=== PATIENT | female | born 1955 | race Caucasian/White ===

== ENCOUNTER → 2019-08-23 09:11 | Outpatient (BNVA) | payer MEDICARE, SELFPAY | PROVIDERS: Family Provider Internal Medicine; PCP Internal Medicine; Visit Provider Family Medicine | DX: Z13.6 Encounter for screening for cardiovascular disorders (principal); F17.219 Nicotine dependence, cigarettes, with unspecified nicotine-induced disorders; L98.9 Disorder of the skin and subcutaneous tissue, unspecified | CPT/HCPCS: 80053; 80061; 85025 ==

== ENCOUNTER 2019-08-28 18:10 | Emergency (ER) | payer MEDICARE, SELFPAY ==
[2019-08-28 18:15] VITALS: BP 211/115; PULSE 87; RESP 20; TEMP 36.6; O2SAT 98; BMI 23.0
--- NOTE | 2019-08-28 18:27 | CTR_ITS ---
PROCEDURE INFORMATION: Exam: CT Head Without Contrast Exam date and time: 08/28/2019 6:29 PM Age: 63 years old Clinical indication: Dizziness and other: Blurry vision, elevated BP; Additional info: Headache, blurry vision TECHNIQUE: Imaging protocol: Computed tomography of the head without contrast. Total DLP: 782.43 mGy-cm Radiation optimization: All CT scans at this facility use at least one of these dose optimization techniques: automated exposure control; mA and/or kV adjustment per patient size (includes targeted exams where dose is matched to clinical indication); or iterative reconstruction. COMPARISON: No relevant prior studies available. FINDINGS: Brain: Mild atrophy and mild white matter chronic microvascular changes are noted. No hemorrhage or CT evidence of acute infarction is seen. Ventricles: Normal. No ventriculomegaly. Bones/joints: Unremarkable. No acute fracture. Sinuses: Visualized sinuses are unremarkable. No fluid levels. Mastoid air cells: Visualized mastoid air cells are well aerated. Orbits: The visualized intraorbital contents appear normal. Soft tissues: Unremarkable. CT/CT head wo con* [id number] IMPRESSION: No acute intracranial abnormality. Radiation Dose CTDIVOL = (mGy): DLP = 782.43 (mGy-cm)
--- NOTE | 2019-08-28 18:28 | ECG_ITS ---
Measurements Intervals Hailey Rate: 74 P: 56 AK: 148 QRS: 33 QRSD: 84 T: 37 QT: 362 QTc: 402 SINUS RHYTHM No previous ECG available for comparison Electronically Signed On 08-29-2019 15:42:40 BAG CUTTER by Christiano Lange M.D. [email or web address]
--- NOTE | 2019-08-28 18:34 | ED_ITS ---
HPI - General Adult General: Chief complaint: General Medical Stated complaint: HTN, CARDENAS, Blurry Vision Time Seen by Provider: 08/28/19 18:27 History of Present Illness: HPI narrative: Patient was brought in by family for concerns of elevated blood pressure, headache and some blurring of the vision. Patient reports some improvement but the headaches has persisted all day. Patient appears well. No obvious focal neural deficits were noted. Skin is warm and dry. Associated symptoms: Reports headache(s) Review of Systems General: Reports: 10 or more systems reviewed and unremarkable except in HPI and below Eyes: Reports: blurry vision Neuro: Reports: headache PFSH ED PFSH: Statuses (acute, chronic, etc) shown below reflect problem list status as previously entered and may not be historically accurate Medical History (Updated 08/28/19 @ 19:36 by CECILIO Flynn) No pertinent past medical history (Acute) Surgical History (Updated 08/23/19 @ 08:53 by Sindy Garcia DO) H/O: hysterectomy (Acute) History of left hip replacement (Acute ~2013) History of tonsillectomy and adenoidectomy (Acute) Social History Smoking and tobacco status: current every day smoker cigarettes Packs smoked per day: 0.25 Alcohol intake: current Alcohol intake frequency: holidays/special occasions only Physical Exam Const: COMMON NORMALS: no apparent distress and oriented x3 GENERAL APPEARANCE: cooperative HENMT: COMMON NORMALS: normocephalic, external ears normal, EAC's normal, TM's normal bilaterally and external nose normal HEAD & SCALP: normal to inspection and normocephalic FACE & SINUS: normal facial exam NOSE: external nose normal GENERAL EAR: hearing not grossly impaired EXTERNAL EA R: Yes external ears normal EXTERNAL AUDITORY CANAL: EAC's normal TYMPANIC MEMBRANE: TM's normal bilaterally MOUTH: oral and palatal mucosa normal THROAT: posterior oropharynx normal Eye: COMMON NORMALS: PERRL, EOMs intact bilaterally and fundi normal bilaterally PUPIL: Yes PERRL DIRECT OPHTHALMOSCOPY: Yes fundi normal bilaterally Neck/C-Spine: COMMON NORMALS: full ROM and no lymphadenopathy Lymph: LYMPHATIC: no lymphedema noted Chest: COMMONS NORMALS: inspection of chest normal and palpation of chest normal Resp: COMMON NORMALS: normal respiratory effort and clear to auscultation bilaterally AUSCULTATION: clear to auscultation bilaterally Cardio: COMMON NORMALS: regular rate and regular rhythm RATE: regular rate RHYTHM: regular rhythm GI: COMMON NORMALS: normal to inspection, nondistended, normoactive bowel sounds and non-tender : COMMON NORMALS: Yes no CVA tenderness BLADDER/KIDNEY EXAM: Yes no CVA tenderness Back/Pelvis: COMMON NORMALS: no CVA tenderness and thoracic and lumbar spine normal to inspection Extremity: COMMON NORMALS: normal to inspection GENERAL: No edema Neuro: COMMON NORMALS: oriented x3, moves all extremities and no focal motor deficits Psych: COMMON NORMALS: mental status grossly normal and cooperative Skin: COMMON NORMALS: no rashes or lesions noted GENERAL SKIN EXAM: no rashes or lesions noted Course Vital Signs: Vital signs: Vital Signs Temperature 97.9 F 08/28/19 18:15 Pulse Rate 71 08/28/19 19:35 Respiratory Rate 20 H 08/28/19 18:15 Blood Pressure 158/88 08/28/19 19:35 Pulse Oximetry 98 08/28/19 18:15 MDM - General Adult MDM Narrative: Medical decision making narrative: Patient was brought in by family for concerns of high blood pressure. Patient states that she had had a headache starting this afternoon when she noticed her blood pressure was really high. Patient was recently to the doctor earlier in the week and was told that she had some mild hypertension. Patient comes in today due to these increase in blood pressure and headache. Exam notes no focal neural deficits. Respirations are even lungs are clear to auscultation. Skin is warm and dry color is pink. Differential diagnosis includes ACS, intracranial bleeding, CVA, TIA, hypertensive emergency. Laboratory values were normal or not significant. EKG was normal sinus rhythm. CT scan of the head noted no intracranial bleeding or acute infarct. Reviewed exam with patient with recommendations for clonidine as needed for elevated blood pressure greater than 165. Recommend that patient follow-up with primary care on Friday at that time she needs to be put on medication routinely for maintenance. Lab Data: Labs: Lab Results 08/28/19 08/28/19 08/28/19 Range/Units 18:36 18:36 18:36 WBC 7.4 (4.0-10.0) 10^3/ uL RBC 4.63 (4.1-5.3) 10^6/u L Hgb 14.4 (11.5-15.3) g/dL Hct 43.2 (37.0-47.0) % MCV 93.3 (81-99) fL MCH 31.1 (28.0-34.0) pg MCHC 33.3 (30.0-36.0) g/dL RDW 13.0 (12.1-15.1) % Plt Count 258 (130-400) 10^3/c mm MPV 10.2 (7.4-10.4) fL Neut % (Auto) 61.5 % Lymph % (Auto) 30.4 % [place] % (Auto) 5.5 % Eos % (Auto) 1.8 % Baso % (Auto) 0.5 % Neut # (Auto) 4.6 (1.8-7.7) 10^3/u L Lymph # (Auto) 2.3 (0.8-4.8) 10^3/u L [place] # (Auto) 0.4 (0.2-0.9) 10^3/u L Eos # (Auto) 0.1 (0.0-0.8) 10^3/u L Baso # (Auto) 0.0 (0.0-0.1) 10^3/u L Nucleated RBC % (a uto) 0 % Nucleated RBCs # 0.0 /100WBC Sodium 140 (136-145) mmol/L Potassium 3.5 (3.5-5.1) mmol/L Chloride 103 (98-107) mmol/L Carbon Dioxide 25 (22-29) mmol/L Anion Gap 15.5 (5-19) BUN 10 (8-23) mg/dL Creatinine 0.6 (0.5-0.9) mg/dL GFR Calculation 100.6 (90-130) mL/min Glucose 109 H (74-106) mg/dL Calcium 9.5 (8.5-10.5) mg/dL Total Bilirubin 0.2 (0.15-1.2) mg/dL AST 16 (0-32) U/L ALT 10 (0-33) U/L Alkaline Phosphata se 106 H (35-105) IU/L Troponin T Baselin e 7 (0-10) ng/mL Total Protein 7.2 (6.6-8.7) g/dL Albumin 4.5 (3.5-5.2) g/dL Globulin 2.7 (1.3-4.6) g/dL EKG Data^: EKG 1: Attestation: I personally reviewed and interpreted this EKG as follows: (1839, NSR, rate regular, 74 bpm, no ectopy or ST elevation.) Computer generated interpretation: Head CT 08/28/19 18:27 IMPRESSION: No acute intracranial abnormality. Radiation Dose CTDIVOL = (mGy): DLP = 782.43 (mGy-cm) Discharge Plan Discharge Clinical Impression: Hypertension, uncontrolled Headache Qualifiers: Headache type: unspecified Headache chronicity pattern: acute headache Intractability: not intractable Qualified Code(s): R51 - Headache Condition: Stable Prescriptions: New clonidine HCl 0.1 mg tablet 0.1 mg PO Q8H PRN (Reason: blood pressure higher than 165 systolic) Qty: 30 RF: 0 No Action albuterol sulfate [ProAir HFA] 90 mcg/actuation HFA aerosol inhaler 2 puff INHALATION Q6H PRNRF: 0 atorvastatin 20 mg tablet 20 mg PO QDAY Qty: 45 RF: 0 Discharge Orders: Discharge Order (Routine); Ordered 08/28/19 Ordered By: Hernan Casillas Referrals: Sindy Garcia DO [Primary Care Provider] - Tyler Ray DO [Family Provider] - Discharge Diet: Usual diet Discharge Activity: Increase activity as tolerated Patient Instructions: Hypertension (ED) Activity Restrictions/Additional Instructions: Try to continue to stop smoking Drink plenty of water Healthy diet and exercise Use medications as directed Check blood pressure three times a day, if pressure is higher than 165 on the top number use clonidine 0.1 mg Follow-up with primary care on Friday for recheck Coding Level of Care Code ED Parachute/Combatant Diver Officer for Chg Fwd Exam Problem Focused
[2019-08-28] MEDS: cloNIDine 0.1 mg Tablet PO (18:38)
[2019-08-28 18:52] LABS: Basophils % 0.5 %; Eosinophils # 0.1 10^3/uL (0.0-0.8); Eosinophils % 1.8 %; Hematocrit 43.2 % (37.0-47.0); Hemoglobin 14.4 g/dL (11.5-15.3); Lymphocytes # 2.3 10^3/uL (0.8-4.8); Lymphocytes % 30.4 %; Mean Corpuscular HGB Conc 33.3 g/dL (30.0-36.0); Mean Corpuscular Hemoglobin 31.1 pg (28.0-34.0); Mean Corpuscular Volume 93.3 fL (81-99); Mean Platelet Volume 10.2 fL (7.4-10.4); Monocytes # 0.4 10^3/uL (0.2-0.9); Monocytes % 5.5 %; Neutrophils # 4.6 10^3/uL (1.8-7.7); Neutrophils % 61.5 %; Nucleated Red Blood Cells % 0 %; Platelet Count 258 10^3/cmm (130-400); Red Blood Count 4.63 10^6/uL (4.1-5.3); White Blood Count 7.4 10^3/uL (4.0-10.0)
[2019-08-28] MEDS: HYDROcodone-acetaminophen 5-325 mg Tablet 1 TAB PO (18:57)
[2019-08-28 19:08] LABS: Alanine Aminotransferase 10 U/L (0-33); Albumin Level 4.5 g/dL (3.5-5.2); Alkaline Phosphatase 106 IU/L (35-105); Anion Gap 15.5 (5-19); Aspartate Amino Transferase 16 U/L (0-32); Blood Urea Nitrogen 10 mg/dL (8-23); Calcium 9.5 mg/dL (8.5-10.5); Carbon Dioxide 25 mmol/L (22-29); Chloride 103 mmol/L (98-107); Globulin 2.7 g/dL (1.3-4.6); Glomerular Filtration Rate 100.6 mL/min (90-130); Glucose 109 mg/dL (74-106); Potassium 3.5 mmol/L (3.5-5.1); Sodium 140 mmol/L (136-145); Total Bilirubin 0.2 mg/dL (0.15-1.2); Total Protein 7.2 g/dL (6.6-8.7)
[2019-08-28 19:16] LABS: Troponin(5th) Baseline 7 ng/mL (0-10)
[2019-08-28 19:35] VITALS: BP 158/88; BP 164/93; BP 168/93; PULSE 71; PULSE 75; PULSE 79
[2019-08-28 20:06] VITALS: BP 168/93; PULSE 74; RESP 18; O2SAT 97
== END 2019-08-28 20:07 ==
PROVIDERS: Emergency Provider Nurse Practitioner Family; Family Provider Internal Medicine; PCP Family Medicine
DX: I10 Essential (primary) hypertension (principal); R51 Headache; F17.210 Nicotine dependence, cigarettes, uncomplicated
CPT/HCPCS: 70450; 80053; 84484; 85025; 93005; 99282; 99283

== ENCOUNTER → 2019-09-20 09:09 | Outpatient (BNVA) | payer MEDICARE, SELFPAY | PROVIDERS: Family Provider Internal Medicine; PCP Family Medicine; Visit Provider Family Medicine | DX: E78.2 Mixed hyperlipidemia (principal); Z12.31 Encounter for screening mammogram for malignant neoplasm of breast; I10 Essential (primary) hypertension; Z78.0 Asymptomatic menopausal state; Z01.419 Encounter for gynecological examination (general) (routine) without abnormal findings | CPT/HCPCS: 80053 ==

== ENCOUNTER 2019-11-15 09:06 | Outpatient (CLI) | payer MEDICARE, SELFPAY ==
--- NOTE | 2019-11-15 09:30 | XR_ITS ---
WS: [id number] RIGHT ELBOW: 2 VIEW(S) TECHNIQUE: AP and lateral. HISTORY: right elbow pain COMPARISON: None available. No acute fractures or dislocation. There is a small anterior joint effusion. No soft tissue abnormality. XR/XR elbow RT 2V [id number] IMPRESSION: Small anterior joint effusion with no fracture identified. Occult fracture shou ld be considered if pain does not resolve. If pain continues after 5-7 days recommended 3 view RIGHT elbow radiographic se kalia.
--- NOTE | 2019-11-16 08:26 | XR_ITS ---
WS: [id number] RIGHT ELBOW: 3 VIEW(S) TECHNIQUE: AP, oblique and lateral. HISTORY: right elbow pain COMPARISON: 11/15/2019 No acute fractures or dislocation. Very slight elevation of the anterior joint capsule. No significant effusion. No soft tissue abnormality.
== END 2019-11-15 09:07 | disposition home or self-care (01) ==
PROVIDERS: Family Provider Internal Medicine; PCP Family Medicine; Visit Provider Family Medicine
DX: M25.521 Pain in right elbow (principal); M25.421 Effusion, right elbow; E78.2 Mixed hyperlipidemia
CPT/HCPCS: 73070; 80053; 80061

== ENCOUNTER 2019-11-16 08:31 | Outpatient (CLI) | payer MEDICARE, SELFPAY ==
--- NOTE | 2019-11-16 12:11 | XR_ITS ---
WS: [id number] RIGHT ELBOW: 3 VIEW(S) TECHNIQUE: AP, oblique and lateral. HISTORY: right elbow pain COMPARISON: 11/15/2019 No acute fractures or dislocation. Very slight elevation of the anterior joint capsule. No significant effusion. No soft tissue abnormality. XR/XR elbow RT min 3V* [id number] IMPRESSION: No RIGHT elbow fracture identified. Very minimal elevation of the anterior join t capsule.
== END 2019-11-16 08:32 | disposition home or self-care (01) ==
LOC: RADWPI 08:34
PROVIDERS: Family Provider Internal Medicine; PCP Family Medicine; Visit Provider Family Medicine
DX: M25.521 Pain in right elbow (principal)
CPT/HCPCS: 73080

== ENCOUNTER 2019-12-14 11:31 | Outpatient (CLI) | payer MEDICARE, SELFPAY ==
--- NOTE | 2019-12-14 16:15 | XR_ITS ---
WS: [id number] DEXA (DUAL ENERGY X-RAY ABSORPTIOMETRY) Bone mineral density was performed using a [employer] machine. HISTORY: post-menopausal COMPARISON: None available. Lumbar spine BMD (L1-L4): 0.878 g/cm2 T score: -2.5 Z score: -0.7 Left forearm BMD: 0.726 g/cm2. T score: -1.7 Z score: -0.4 Total hip BMD: Right: 0.709. T score: -2.4 Z score: -1.0 10 year probability of a major osteoporotic fracture is 15%. XR/XR DEXA axial skeleton* [id number] IMPRESSION: OSTEOPOROSIS based upon the WHO classification for females.
== END 2019-12-14 11:32 | disposition home or self-care (01) ==
LOC: RADWPI 11:36
PROVIDERS: PCP Family Medicine; Visit Provider Family Medicine
DX: Z78.0 Asymptomatic menopausal state (principal); M81.0 Age-related osteoporosis without current pathological fracture
CPT/HCPCS: 77080

== ENCOUNTER 2019-12-14 12:18 | Outpatient (CLI) | payer MEDICARE, SELFPAY ==
--- NOTE | 2019-12-14 12:30 | MM_ITS ---
WS: [id number] BILATERAL DIGITAL SCREENING MAMMOGRAPHY WITH CAD CLINICAL INFORMATION: screening mammogram HISTORY: Screening mammogram. No current complaints. COMPARISON: June 22, 2018 TECHNIQUE: Bilateral CC and MLO views. FINDINGS: Scattered fibroglandular densities bilaterally. No suspicious focal mass, asymmetry, calcifications, or architectural distortion. No evidence of malignancy. Vascular calcification. Intramammary lymph no earline. MM/[place] [id number] IMPRESSION: BI-RADS: 2-Benign FOLLOW UP: 1 Year Follow-up Recommend return to annual screening mammography.
== END 2019-12-14 12:19 | disposition home or self-care (01) ==
LOC: RADSHAW 12:22
PROVIDERS: PCP Family Medicine; Visit Provider Family Medicine
DX: Z12.31 Encounter for screening mammogram for malignant neoplasm of breast (principal)
CPT/HCPCS: 77067

== ENCOUNTER → 2020-05-11 09:51 | Outpatient (BNVA) | payer MEDICARE, SELFPAY | PROVIDERS: PCP Family Medicine; Visit Provider Family Medicine | DX: I10 Essential (primary) hypertension (principal); E78.2 Mixed hyperlipidemia; R60.0 Localized edema; F17.219 Nicotine dependence, cigarettes, with unspecified nicotine-induced disorders | CPT/HCPCS: 80053; 80061 ==

== ENCOUNTER → 2020-11-09 09:15 | Outpatient (BNVA) | payer MEDICARE, SELFPAY | PROVIDERS: PCP Family Medicine; Visit Provider Family Medicine | DX: I10 Essential (primary) hypertension (principal); E78.2 Mixed hyperlipidemia; L98.9 Disorder of the skin and subcutaneous tissue, unspecified; J30.1 Allergic rhinitis due to pollen; F17.219 Nicotine dependence, cigarettes, with unspecified nicotine-induced disorders | CPT/HCPCS: 80053; 80061; 82043; 85025 ==

== ENCOUNTER 2021-01-22 11:45 | Outpatient (CLI) | payer MEDICARE, SELFPAY ==
--- NOTE | 2021-01-22 11:53 | MM_ITS ---
WS: [id number] BILATERAL DIGITAL SCREENING MAMMOGRAPHY WITH CAD CLINICAL INFORMATION: SCREENING HISTORY: Screening mammogram. No current complaints. COMPARISON: December 14, 2019 TECHNIQUE: Bilateral CC and MLO views. FINDINGS: Scattered fibroglandular densities bilaterally. A few punctate calcifications. No suspicious focal ma ss, asymmetry, calcifications, or architectural distortion. No evidence of malignancy. MM/[place] [id number] IMPRESSION: BI-RADS: 2-Benign FOLLOW UP: 1 Year Follow-up Recommend return to annual screening mammography.
== END 2021-01-22 11:46 | disposition home or self-care (01) ==
LOC: RADSHAW 11:50
PROVIDERS: PCP Family Medicine; Visit Provider Family Medicine
DX: Z12.31 Encounter for screening mammogram for malignant neoplasm of breast (principal)
CPT/HCPCS: 77067

== ENCOUNTER → 2021-05-10 11:56 | Outpatient (BNVA) | payer MEDICARE, SELFPAY | PROVIDERS: PCP Family Medicine; Visit Provider Family Medicine | DX: I10 Essential (primary) hypertension (principal) | CPT/HCPCS: 80053 ==

== ENCOUNTER → 2021-07-02 10:18 | Outpatient (BNVA) | payer MEDICARE, SELFPAY | PROVIDERS: PCP Family Medicine; Visit Provider Nurse Practitioner Family | DX: Z20.822 Contact with and (suspected) exposure to COVID-19 (principal) | CPT/HCPCS: 87635 ==

== ENCOUNTER → 2021-11-23 11:32 | Outpatient (BNVA) | payer MEDICARE, SELFPAY | PROVIDERS: PCP Family Medicine; Visit Provider Family Medicine | DX: I10 Essential (primary) hypertension (principal); J20.8 Acute bronchitis due to other specified organisms; B96.89 Other specified bacterial agents as the cause of diseases classified elsewhere; Z78.0 Asymptomatic menopausal state | CPT/HCPCS: 80053; 80061; 82043; 85025 ==

== ENCOUNTER 2022-03-20 09:20 | Outpatient (CLI) | payer MEDICARE, SELFPAY ==
--- NOTE | 2022-03-20 09:25 | MM_ITS ---
WS: [id number] Bilateral screening 3D tomosynthesis digital mammogram, 03/20/2022 Clinical Data: SCREENING Comparison: 01/22/2021, 12/14/2019, 07/07/2018, 06/22/2018. Findings: The breast parenchymal pattern shows fibroglandular tissue. No spiculated masses or clustered calcifi cations are seen. There are no secondary signs of carcinoma. Mole markers are on both breasts. MM/[place] [id number] Impression: 1. Negative bilateral mammogram unchanged. 2. Recommend annual screening mammograms. BIRADS: 1-Negative FOLLOW UP: 1 Year Follow-up The CAD weight yardage checker was used.
== END 2022-03-20 09:21 | disposition home or self-care (01) ==
LOC: RAD 09:22
PROVIDERS: PCP Family Medicine; Visit Provider Family Medicine
DX: Z12.31 Encounter for screening mammogram for malignant neoplasm of breast (principal)
CPT/HCPCS: 77063; 77067

== ENCOUNTER 2022-09-09 10:47 | Outpatient (CLI) | payer MEDICARE, SELFPAY ==
--- NOTE | 2022-09-09 11:02 | XRR_ITS ---
PROCEDURE INFORMATION: Exam: XR Left Hip Exam date and time: 09/09/2022 11:12 AM Age: 66 years old Clinical indication: Hip pain; Prior surgery; Surgery date: 6+ months; Surgery type: Left hip, 10 years; Patient HX: Lt hip follow up after 10yrs; Additional info: Left hip pain TECHNIQUE: Imaging protocol: Radiologic exam of the Left hip. Views: 2 or 3 views hip with pelvis when performed. COMPARISON: No relevant prior studies available. FINDINGS: Bones/joints: Metallic left hip arthroplasty is seen in good position. No acute fracture. Soft tissues: Unremarkable. XR/XR hip LT 2-3V wo/w pel* [id number] IMPRESSION: 1. Metallic left hip arthroplasty in good position 2. Otherwise No acute findings.
== END 2022-09-09 10:48 | disposition home or self-care (01) ==
PROVIDERS: PCP Family Medicine; Visit Provider Family Medicine
DX: M25.552 Pain in left hip (principal); Z96.642 Presence of left artificial hip joint; I10 Essential (primary) hypertension; E78.2 Mixed hyperlipidemia
CPT/HCPCS: 73502; 80053; 80061; 82043; 85025

== ENCOUNTER 2022-09-19 12:50 | Outpatient (CLI) | payer MEDICARE, SELFPAY ==
--- NOTE | 2022-09-19 13:30 | XR_ITS ---
WS: [id number] SCREENING DEXA SCAN [employer] CLINICAL INFORMATION: post-menopausal COMPARISON: December 14, 2019 FINDINGS: The L1-L4 bone mineral density measures 0.878 g/cm2. This corresponds to a T score score of -2.5 and Z score of -0.8. Right femoral neck bone mineral density measures 0.67. This corresponds to a T score -2.6 and Z score of -1.2. LEFT forearm bone mineral density measures 0.699. This corresponds to a T score of -2.0 and Z score o f -0.4. XR/XR DEXA axial skeleton* [id number] IMPRESSION: Osteoporosis lumbar spine at the lower end of the range. Osteoporosis RIGHT fem oral neck. Osteopenia LEFT forearm. Patient's FRAX calculated 10 year probability for major osteoporotic fracture i s 17.3 % and osteoporotic hip fracture is 5.3%. Bone mineral density of the lumbar spine is unchanged since 2019 Bone mineral density in the RIGHT femur decreased -4.5% since 2019 Bone mineral density in the LEFT forearm has decreased -3.7% since 2019
== END 2022-09-19 12:51 | disposition home or self-care (01) ==
LOC: RAD 12:51
PROVIDERS: PCP Family Medicine; Visit Provider Family Medicine
DX: Z78.0 Asymptomatic menopausal state (principal); M81.0 Age-related osteoporosis without current pathological fracture; M85.832 Other specified disorders of bone density and structure, left forearm
CPT/HCPCS: 77080

== ENCOUNTER 2023-03-21 08:58 | Outpatient (CLI) | payer MEDICARE, SELFPAY ==
--- NOTE | 2023-03-21 09:03 | MM_ITS ---
WS: [id number] BILATERAL SCREENING DIGITAL TOMOSYNTHESIS MAMMOGRAM WITH CAD HISTORY: screening mammogram COMPARISON: 03/20/2022 and 01/14/2021 Bilateral CC and MLO views with tomosynthesis and synthetic mammography submitted. Computer aided det ection analyzed. Breast composition: There are scattered areas of fibroglandular density. No suspicious masses, microc alcifications or architectural distortion. Benign calcifications LEFT breast. IMPRESSION: MM/[place] [id number] BI-RADS: 2-Benign FOLLOW UP: 1 Year Follow-up
== END 2023-03-21 08:59 | disposition home or self-care (01) ==
PROVIDERS: PCP Family Medicine; Visit Provider Family Medicine
DX: Z12.31 Encounter for screening mammogram for malignant neoplasm of breast (principal)
CPT/HCPCS: 77063; 77067

== ENCOUNTER → 2023-04-03 14:34 | Outpatient (BNVA) | payer MEDICARE, SELFPAY | PROVIDERS: PCP Family Medicine; Visit Provider Nurse Practitioner Family | DX: C44.41 Basal cell carcinoma of skin of scalp and neck (principal); L82.1 Other seborrheic keratosis; Z85.828 Personal history of other malignant neoplasm of skin; Z80.8 Family history of malignant neoplasm of other organs or systems; L81.4 Other melanin hyperpigmentation; D22.5 Melanocytic nevi of trunk; L85.3 Xerosis cutis; L57.8 Other skin changes due to chronic exposure to nonionizing radiation; L57.0 Actinic keratosis; C44.629 Squamous cell carcinoma of skin of left upper limb, including shoulder | CPT/HCPCS: 11102; 17000; 17003; 99213 ==

== ENCOUNTER → 2023-04-08 10:18 | Outpatient (BNVA) | payer MEDICARE, SELFPAY | PROVIDERS: PCP Family Medicine; Visit Provider Family Medicine | DX: I10 Essential (primary) hypertension (principal) | CPT/HCPCS: 80053 ==

== ENCOUNTER → 2023-06-27 07:58 | Outpatient (BNVA) | payer MEDICARE, SELFPAY | PROVIDERS: PCP Family Medicine; Visit Provider Nurse Practitioner Family | DX: R51.9 Headache, unspecified (principal); J06.9 Acute upper respiratory infection, unspecified | CPT/HCPCS: 87426 ==

== ENCOUNTER → 2023-07-04 11:32 | Outpatient (BNVA) | payer MEDICARE, SELFPAY | PROVIDERS: PCP Family Medicine; Visit Provider Family Medicine | DX: Z13.6 Encounter for screening for cardiovascular disorders (principal); R61 Generalized hyperhidrosis; I70.0 Atherosclerosis of aorta | CPT/HCPCS: 71046; 80053; 84443; 85025; 86480 ==

== ENCOUNTER → 2023-10-02 13:40 | Outpatient (BNVA) | payer MEDICARE, SELFPAY | PROVIDERS: PCP Family Medicine; Visit Provider Nurse Practitioner Family | DX: L57.0 Actinic keratosis (principal); L82.1 Other seborrheic keratosis; L81.4 Other melanin hyperpigmentation; D22.5 Melanocytic nevi of trunk; L85.3 Xerosis cutis; L57.8 Other skin changes due to chronic exposure to nonionizing radiation; D04.62 Carcinoma in situ of skin of left upper limb, including shoulder; Z85.828 Personal history of other malignant neoplasm of skin; Z80.8 Family history of malignant neoplasm of other organs or systems | CPT/HCPCS: 17000; 17262; 99214 ==

== ENCOUNTER 2023-10-05 23:48 | Emergency (ER) | payer MEDICARE, SELFPAY ==
[2023-10-05 23:55] VITALS: BP 157/90; PULSE 92; RESP 22; TEMP 36.7; O2SAT 94; BMI 27.4
--- NOTE | 2023-10-05 23:57 | CTR_ITS ---
PROCEDURE INFORMATION: Exam: CT Abdomen And Pelvis With Contrast Exam date and time: 10/05/2023 11:49 PM Age: 67 years old Clinical indication: Abdominal pain; Localized; Left lower quadrant (llq); Prior surgery; Surgery date: 6+ months; Surgery type: Champ. Hysterectomy; Patient HX: C/O llq pain; Additional info: Abd pain TECHNIQUE: Imaging protocol: Computed tomography of the abdomen and pelvis with contrast. Radiation optimization: All CT scans at this facility use at least one of these dose optimization techniques: automated exposure control; mA and/or kV adjustment per patient size (includes targeted exams where dose is matched to clinical indication); or iterative reconstruction. Contrast material: OMNI 350; Contrast volume: 100 ml; Contrast route: INTRAVENOUS (IV); COMPARISON: CR XR hip LT 2-3V wo/w pel* [id number] 09/09/2022 11:12 AM RADIATION DOSE METRICS: Total DLP (mGy-cm): 553.46 FINDINGS: Liver: Normal. No mass. Gallbladder and bile ducts: Normal. No calcified stones. No ductal dilation. Pancreas: Normal. No ductal dilation. Spleen: Normal. No splenomegaly. Adrenal glands: Normal. No mass. Kidneys and ureters: Multiple subcentimeter bilateral renal cysts which are too small to adequately characterize but likely represent simple cyst of no clinical significance. No follow-up imaging indicated. Stomach and bowel: Diverticulitis of the proximal sigmoid colon. Appendix: No evidence of appendicitis. Intraperitoneal space: Unremarkable. No free air. No significant fluid collection. 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 Lymph nodes: Unremarkable. No enlarged lymph nodes. Urinary bladder: Unremarkable as visualized. Reproductive: Unremarkable as visualized. Bones/joints: Total left hip arthroplasty partially visualized with no evidence of hardware failure or loosening. Osseous hemangioma in the T11 vertebral body. Soft tissues: Unremarkable. Other findings: No abscess. CT/CT abdomen pelvis w con* [id number] IMPRESSION: 1. Diverticulitis of the proximal sigmoid colon. 2. No abscess.
--- NOTE | 2023-10-05 23:58 | ED_ITS ---
HPI - Abdominal Pain 2 General: Chief Complaint: Abdominal Pain Stated Complaint: abdomen pain Time Seen by Provider: 10/05/23 23:51 Source: patient Mode of arrival: ambulatory Limitations: no limitations History of Present Illness: 67-year-old female states she has been h aving left lower quadrant pain for the last 2 days. States it is a sharp pain that is worse with movement. She denies any vomiting or diarrhea she denies any fevers. Denies any radiation of her pain Associated Symptoms: Denies chills, diarrhea, fever(s), nausea and vomiting Review of Systems 2 Const: Denies: fever(s), chills, body aches or change in appetite Eyes: Denies: blurry vision or eye discomfort ENMT: Denies: throat pain or dental pain Card: Denies: chest pain Resp: Denies: dyspnea GI: Reports: abdominal pain; Denies: nausea, vomiting or diarrhea Musc: Denies: neck pain or back pain Skin/Breast: Denies: rash Neuro: Denies: headache(s) PFSH ED 2 PFSH: Medical History Current non-smoker quit ~ 07/28/2022 History of nonmelanoma skin cancer Left maxillary sinusitis Benign essential HTN Hyperlipidemia Nicotine dependence, cigarettes, with unspecified nicotine-induced disorders Quit 07/28/2022 Surgical History History of left hip replacement (~2013) H/O: hysterectomy History of tonsillectomy and adenoidectomy Family History Mother Hypertension Father Hypertension Social History Smoking and tobacco/nicotine status: current some day tobacco/nicotine user cigarettes Packs smoked per day: 0.25 Alcohol intake: current Alcohol intake frequency: holidays/special occasions only Substance/Drug Use: never Physical Exam 2 Const: COMMON NORMALS: no acute distress, patient oriented x3 and healthy appearing HENMT: COMMON NORMALS: normocephalic and atraumatic HEAD & SCALP: n ormocephalic and atraumatic Eye: COMMON NORMALS: conjunctivae normal CONJUNCTIVA: Yes conjunctivae normal Neck/C-Spine: COMMON NORMALS: full ROM and supple Chest: COMMONS NORMALS: normal inspection of the chest Resp: COMMON NORMALS: normal respiratory effort Cardio: COMMON NORMALS: regular rate, regular rhythm and No murmurs present (Cardio) RATE: regular rate RHYTHM: regular rhythm GI: COMMON NORMALS: Normal to inspection, nondistended, normoactive bowel sounds present, Soft to palpation and no masses PALPATION: Yes Soft to palpation and Yes Tenderness to palpation present (GI) Details: LLQ Extremity: COMMON NORMALS: normal to inspection and full ROM Neuro: COMMON NORMALS: patient oriented x3, moves all extremities and no focal motor deficits Psych: COMMON NORMALS: mental status grossly normal, Normal thought process present and cooperative THOUGHT PROCESS: Normal thought process present Skin: COMMON NORMALS: no rashes or lesions noted and no wounds GENERAL SKIN EXAM: no rashes or lesions noted Course 2 Vital Signs: Vital signs: Vital Signs Temperature 98.0 F 10/05/23 23:55 Pulse Rate 71 10/06/23 01:29 Respiratory Rate 16 10/06/23 01:29 Blood Pressure 96/67 10/06/23 01:29 Pulse Oximetry 93 10/06/23 01:29 Oxygen Delivery Me thod Room Air 10/06/23 01:29 MDM - Abdominal Pain Medical Decision Making Patient presents here with abdominal pain left lower quadrant she is found to have diverticulitis she had no vomiting she is afebrile she does have a leukocytosis of 15 I discussed with her at length and offered admission she states that her pain is not severe and she would like to trial antibiotics at home we will place her on Cipro Flagyl she is to follow-up with PCP return if worsening she understands agrees to plan. Medical Records I reviewed the patient's medical records. Lab Data I reviewed the patient's lab results. 10/05/23 00:06 10/06/23 00:01 Labs/Radiology: Radiology Impressions Abdomen/Pelvis CT 10/05/23 23:57 IMPRESSION: 1. Diverticulitis of the proximal sigmoid colon. 2. No abscess. Laboratory Results WBC 15.63 10^3/uL (3.29-11.43) H 10/05/23 00:06 RBC 4.69 10^6/uL (3.85-5.65) 10/05/23 00:06 Hgb 14.10 g/dL (11.27-16.99) 10/05/23 00:06 Hct 42.3 % (36-47) 10/05/23 00:06 MCV 90.2 fl (85-98) 10/05/23 00:06 MCH 30.1 pg (27-33) 10/05/23 00:06 MCHC 33.3 g/dL (30-55) 10/05/23 00:06 RDW 14.6 % (12.1-15.1) 10/05/23 00:06 Plt Count 330 10^3/cmm (157-399) 10/05/23 00:06 MPV 10.1 fL (7.4-10.4) 10/05/23 00:06 Neut % (Auto) 68.0 % 10/05/23 00:06 Lymph % (Auto) 18.5 % 10/05/23 00:06 [place] % (Auto) 8.7 % 10/05/23 00:06 Eos % (Auto) 3.4 % 10/05/23 00:06 Baso % (Auto) 0.6 % 10/05/23 00:06 Neut # (Auto) 10.64 10^3/uL (1.8-7.7) H 10/05/23 00:06 Lymph # (Auto) 2.9 10^3/uL (0.8-4.8) 10/05/23 00:06 [place] # (Auto) 1.4 10^3/uL (0.2-0.9) H 10/05/23 00:06 Eos # (Auto) 0.5 10^3/uL (0.0-0.8) 10/05/23 00:06 Baso # (Auto) 0.1 10^3/uL (0.0-0.1) 10/05/23 00:06 Nucleated RBC % (auto) 0 % 10/05/23 00:06 Nucleated RBCs # 0.0 /100WBC 10/05/23 00:06 Sodium 135 mmol/L (136-145) L 10/06/23 00:01 Potassium 3.2 mmol/L (3.5-5.1) L 10/06/23 00:01 Chloride 101 mmol/L (98-107) 10/06/23 00:01 Carbon Dioxide 23 mmol/L (22-29) 10/06/23 00:01 Anion Gap 14.2 (5-19) 10/06/23 00:01 BUN 9 mg/dL (8-23) 10/06/23 00:01 Creatinine 0.5 mg/dL (0.5-0.9) 10/06/23 00:01 GFR Calculation 122.7 mL/min (90-130) 10/06/23 00:01 Glucose 106 mg/dL (65-115) 10/06/23 00:01 Calculated Osmolality 279 mOsm/kg (285-295) L 10/06/23 00:01 Calcium 7.3 mg/dL (8.5-10.5) L 10/06/23 00:01 Total Bilirubin 0.7 mg/dL (0.15-1.2) 10/06/23 00:01 AST 11 U/L (0-32) 10/06/23 00:01 ALT 12 U/L (0-33) 10/06/23 00:01 Alkaline Phosphatase 73 U/L (35-105) 10/06/23 00:01 Total Protein 5.4 g/dL (6.6-8.7) L 10/06/23 00:01 Albumin 3.4 g/dL (3.5-5.2) L 10/06/23 00:01 Globulin 2.0 g/dL (1.3-4.6) 10/06/23 00:01 Lipase 27 U/L (13-60) 10/06/23 00:01 Urine Color Yellow (Yellow) 10/06/23 01:01 Urine Appearance Hazy (CLEAR) A 10/06/23 01:01 Urine pH 5 (5-7) 10/06/23 01:01 Ur Specific [place] 1.005 (1.005-1.030) 10/06/23 01:01 Urine Protein Neg (Negative) 10/06/23 01:01 Urine Glucose (UA) Norm (Normal) 10/06/23 01:01 Urine Ketones Negative (Negative) 10/06/23 01:01 Urine Blood 3+ (Negative) H 10/06/23 01:01 Urine Nitrate Negative (Negative) 10/06/23 01:01 Urine Bilirubin Neg (Negative) 10/06/23 01:01 Urine Urobilinogen Neg mg/dL (Negative) 10/06/23 01:01 Ur Leukocyte Esterase 1+ (Negative) H 10/06/23 01:01 Urine RBC 5-10 /hpf (0-2) H 10/06/23 01:01 Urine WBC 15-25 /hpf (0-5) H 10/06/23 01:01 Ur Squamous Epith Cells 0-4 /hpf (0-5) H 10/06/23 01:01 Amorphous Sediment Not Reportable 10/06/23 01:01 Urine Bacteria Trace /hpf (NONE) 10/06/23 01:01 All radiology interpretation(s) finalized by discharge Discharge Plan Discharge Patient Disposition: Home Clinical Impression: Diverticulitis Condition: Stable Prescriptions: New hydrocodone-acetaminophen 5-325 mg tablet 1 tab PO Q6H PRN (Reason: pain) Qty: 14 0RF Cipro 500 mg tablet 500 mg PO BID Qty: 14 0RF ondansetron 4 mg tablet,disintegrating 4 mg PO Q6H PRN (Reason: nausea and vomiting) Qty: 14 0RF metronidazole 500 mg tablet 500 mg PO Q8H 7 Days Qty: 21 0RF No Action fluticasone propionate 50 mcg/actuation spray,suspension 1 spray intranasal BID 90 Days Qty: 48 1RF Rx Instructions: administer into each nostril albuterol sulfate 90 mcg/actuation HFA aerosol inhaler See Rx Instructions .ROUTE .COMPLEX Qty: 1 3RF Dose Instruction: INHALE 2 PUFFS EVERY 6 HOURS NEEDED FOR WHEEZING Rx Instructions: INHALE 2 PUFFS EVERY 6 HOURS NEEDED FOR WHEEZING benzonatate 200 mg capsule 200 mg PO TID PRN (Reason: cough) Qty: 30 0RF budesonide-formoterol [Symbicort] 160-4.5 mcg/actuation HFA aerosol inhaler 2 puff inhalation BID 90 Days Qty: 30.6 1RF ofloxacin 0.3 % drops 10 drp otic (ear) DAILY 7 Days Qty: 5 0RF Rx Instructions: To right ear meloxicam 15 mg tablet 15 mg PO DAILY Qty: 90 0RF Rx Instructions: Take with food neomycin-polymyxin B-dexameth [Maxitrol] 3.5mg/mL-10,000 unit/mL-0.1 % drops,suspension 2 drp ophthalmic (eye) Q2H 5 Days Qty: 5 0RF loratadine 10 mg tablet See Rx Instructions .ROUTE .COMPLEX Qty: 90 10RF Dose Instruction: TAKE 1 TABLET ONCE DAILY FOR ALLERGY SYMPTOMS Rx Instructions: TAKE 1 TABLET ONCE DAILY FOR ALLERGY SYMPTOMS azithromycin 500 mg tablet See Rx Instructions PO .COMPLEX Qty: 3 0RF Rx Instructions: For 500 mg dose pack: take 500 mg once daily for 3 days PO hydrochlorothiazide 25 mg tablet 25 mg PO QAM Qty: 90 1RF atorvastatin 20 mg tablet See Rx Instructions .ROUTE .COMPLEX Qty: 90 3RF Dose Instruction: TAKE 1 TABLET EVERY DAY Rx Instructions: TAKE 1 TABLET EVERY DAY risedronate 35 mg tablet See Rx Instructions .ROUTE .COMPLEX Qty: 12 3RF Dose Instruction: TAKE 1 TABLET ONE TIME WEEKLY Rx Instructions: TAKE 1 TABLET ONE TIME WEEKLY Discharge Orders: Discharge ED (Routine); Ordered 10/06/23 Ordered By: Liam Swift Referrals: Sindy Garcia DO [Primary Care Provider] - 4-7 days Discharge Diet: Advance as tolerated Discharge Activity: Resume usual activity Patient Instructions: Diverticulitis (ED) Coding Level of Care Code ED [employer] for Lilli Turner
[2023-10-06] MEDS: sodium chloride 0.9% 1,000 ML 999 ML IV (00:09)
[2023-10-06] MEDS: ondansetron 2 mg/ML SDV 2 mL 4 MG IVP (00:11)
[2023-10-06] MEDS: morphine 4 mg/mL SDV 1 mL IVP (00:11)
[2023-10-06 00:18] LABS: Basophils # 0.1 10^3/uL (0.0-0.1); Basophils % 0.6 %; Eosinophils # 0.5 10^3/uL (0.0-0.8); Eosinophils % 3.4 %; Hematocrit 42.3 % (36-47); Lymphocytes # 2.9 10^3/uL (0.8-4.8); Lymphocytes % 18.5 %; Mean Corpuscular HGB Conc 33.3 g/dL (30-55); Mean Corpuscular Hemoglobin 30.1 pg (27-33); Mean Corpuscular Volume 90.2 fl (85-98); Mean Platelet Volume 10.1 fL (7.4-10.4); Monocytes # 1.4 10^3/uL (0.2-0.9); Monocytes % 8.7 %; Neutrophils # 10.64 10^3/uL (1.8-7.7); Nucleated Red Blood Cells % 0 %; Platelet Count 330 10^3/cmm (157-399); Red Blood Count 4.69 10^6/uL (3.85-5.65); Red Cell Distribution Width 14.6 % (12.1-15.1); White Blood Count 15.63 10^3/uL (3.29-11.43)
[2023-10-06] MEDS: iohexol 350 mg/mL 500 mL Btl (per mL) IV (00:52)
[2023-10-06 01:29] VITALS: BP 96/67; PULSE 71; RESP 16; O2SAT 93
[2023-10-06 01:42] LABS: Alanine Aminotransferase 12 U/L (0-33); Albumin Level 3.4 g/dL (3.5-5.2); Alkaline Phosphatase 73 U/L (35-105); Anion Gap 14.2 (5-19); Aspartate Amino Transferase 11 U/L (0-32); Blood Urea Nitrogen 9 mg/dL (8-23); Calcium 7.3 mg/dL (8.5-10.5); Carbon Dioxide 23 mmol/L (22-29); Chloride 101 mmol/L (98-107); Creatinine Clr Calc Pharmacy 60.8553; Glomerular Filtration Rate 122.7 mL/min (90-130); Glucose 106 mg/dL (65-115); Lipase 27 U/L (13-60); Osmolality Calculated 279 mOsm/kg (285-295); Potassium 3.2 mmol/L (3.5-5.1); Sodium 135 mmol/L (136-145); Total Bilirubin 0.7 mg/dL (0.15-1.2); Total Protein 5.4 g/dL (6.6-8.7)
[2023-10-06 02:00] LABS: Add Urine Microscopic? YES; Bilirubin Urine Neg (Negative); Blood Urine 3+ (Negative); Glucose Urine UA Norm (Normal); Ketones Urine Negative (Negative); Leukocyte Esterase Urine 1+ (Negative); Nitrate Urine Negative (Negative); Protein Urine Neg (Negative); Specific Gravity, Urine 1.005 (1.005-1.030); Urine Appearance Hazy (CLEAR); Urine Color Yellow (Yellow); Urobilinogen Urine Neg (Negative); pH Urine 5 (5-7)
[2023-10-06 02:01] LABS: Add Urine Culture? Yes; Bacteria Urine TRACE /hpf; Squamous Epithelial Cell Urine 0-4 /hpf (0-5); WBC Urine 15-25 /hpf (0-5)
[2023-10-06] MEDS: ciprofloxacin 500 mg Tablet PO (02:07)
[2023-10-06] MEDS: metroNIDAZOLE 500 MG Tablet PO (02:07)
[2023-10-06 02:28] VITALS: BP 96/67; PULSE 71; RESP 16; TEMP 36.7; O2SAT 93
== END 2023-10-06 02:29 | disposition home or self-care (01) ==
PROVIDERS: Emergency Provider Emergency Medicine; PCP Family Medicine
DX: K57.92 Diverticulitis of intestine, part unspecified, without perforation or abscess without bleeding (principal); I10 Essential (primary) hypertension; E78.5 Hyperlipidemia, unspecified; F17.210 Nicotine dependence, cigarettes, uncomplicated
CPT/HCPCS: 36415; 74177; 80053; 81001; 83690; 85025; 87086; 96361; 96374; 96375; 99285; J2270; J2405; J7030; Q9967

== ENCOUNTER 2023-10-31 11:53 | Outpatient (CLI) | payer MEDICARE, SELFPAY ==
--- NOTE | 2023-10-31 12:00 | XR_ITS ---
WS: [id number] Examination: XR hand RT min 3V* [id number] Reason for Exam: right thumb pain Date: October 31, 2023 Comparison: None. Findings: The bone density is maintained Limited interphalangeal joint spurring and degenerative changes are suspected. I see no erosive goldberg es There is no fracture or dislocation No significant soft tissue swelling is identified. The first carpal metacarpal joint is well maintained. I see no acute bony abnormality of the thumb. Impression: No acute bony abnormality is noted Mild degenerative changes at the interphalangeal joints are suspected.
[2023-10-31 13:48] LABS: Urine Appearance Cloudy (CLEAR); Urine Color Light yellow (Yellow); pH Urine 6.5 (5-7)
[2023-10-31 13:49] LABS: Add Urine Microscopic? YES; Bilirubin Urine Neg (Negative); Blood Urine 2+ (Negative); Glucose Urine UA Norm (Normal); Ketones Urine Negative (Negative); Leukocyte Esterase Urine 2+ (Negative); Nitrate Urine Positive (Negative); Protein Urine Trace (Negative); Urobilinogen Urine Neg (Negative)
[2023-10-31 13:54] LABS: RBC Urine 0-4 /hpf (0-2); Squamous Epithelial Cell Urine 0-4 /hpf (0-5); WBC Urine TOO NUMEROUS TO CNT /hpf (0-5)
[2023-10-31 13:55] LABS: Add Urine Culture? Yes; Bacteria Urine 3+ /hpf
== END 2023-10-31 11:54 | disposition home or self-care (01) ==
LOC: LAB 11:55
PROVIDERS: PCP Family Medicine; Visit Provider Family Medicine
DX: R30.0 Dysuria (principal); M19.041 Primary osteoarthritis, right hand
CPT/HCPCS: 73130; 81001

== ENCOUNTER → 2023-12-03 08:08 | Outpatient (BNVA) | payer MEDICARE, SELFPAY | PROVIDERS: PCP Family Medicine; Referring Provider Family Medicine; Visit Provider Surgery | DX: K57.92 Diverticulitis of intestine, part unspecified, without perforation or abscess without bleeding (principal) | CPT/HCPCS: 83630; 83993; 99204 ==

== ENCOUNTER 2023-12-03 12:39 | Outpatient (CLI) | payer MEDICARE, SELFPAY | END 2023-12-03 12:40 | disposition home or self-care (01) | LOC: LAB 12:41 | PROVIDERS: PCP Family Medicine; Visit Provider Surgery | DX: K57.92 Diverticulitis of intestine, part unspecified, without perforation or abscess without bleeding (principal) | CPT/HCPCS: 83630; 83993 ==

== ENCOUNTER → 2024-01-05 11:00 | Outpatient (BNVA) | payer MEDICARE, SELFPAY | PROVIDERS: PCP Family Medicine; Visit Provider Specialist | DX: M79.641 Pain in right hand (principal); M65.312 Trigger thumb, left thumb | CPT/HCPCS: 73130; 99204 ==

== ENCOUNTER → 2024-01-19 08:51 | Outpatient (BNVA) | payer MEDICARE, SELFPAY | PROVIDERS: PCP Family Medicine; Visit Provider Family Medicine | DX: R30.0 Dysuria (principal); E83.42 Hypomagnesemia; E87.6 Hypokalemia; E78.2 Mixed hyperlipidemia; I10 Essential (primary) hypertension; M18.11 Unilateral primary osteoarthritis of first carpometacarpal joint, right hand; M85.851 Other specified disorders of bone density and structure, right thigh; R39.9 Unspecified symptoms and signs involving the genitourinary system | CPT/HCPCS: 80053; 80061; 81000; 83721; 83735; 85025 ==

== ENCOUNTER 2024-01-27 09:09 | Day surgery (SDC) | payer MEDICARE, SELFPAY ==
[2024-01-27 09:26] VITALS: BP 125/88; PULSE 75; RESP 18; TEMP 36.3; O2SAT 96; BMI 29.0
[2024-01-27] MEDS: sodium chloride 0.9% 1,000 ML 30 ML IV (09:34)
--- NOTE | 2024-01-27 09:56 | ANES.PREANE2 ---
Pre-Anesthetic Assessment Height/Weight: Height 1.57 m Weight 72.121 kg Temp Pulse Resp BP Pulse Ox O2 Del Method 97.4 F L 75 18 125/88 96 Room Air 01/27/24 09:26 01/27/24 09:26 01/27/24 09:26 01/27/24 09:26 01/27/24 09:01/27/24 09:26 Operation Date: 01/27/24 10:15 Proposed Procedures p Colonoscopy 81677, G0105, Z12.11, K57.92(Not Applicable) - Rodo Dan MD Was Beta Benita taken within 24 hours: N/A Was Clonidine taken within 24 hours: N/A Last intake: Intake Last Liquid Date 01/26/24 Last Liquid Time 20:00 Last Solid Date 01/25/24 Last Solid Time 17:00 Social Alcohol (Weekend drinking) and No tobacco Exam alert and oriented x 3 Airway Submandibular: within normal limits Cervical ROM: within normal limits Mallampati: Class II Dentition: false History/ROS No significant history except as noted and No significant complaints Pulmonary None reported CV/HEM Hypertension Urinary Tract Infection (Was taking antibiotic for recent UTI, was on a 7 day regimen of antibiotic medication. Patient stated completed course of antibiotic.) Hepatic None reported GI Gastroesophageal Reflux Disease Indigestion if eating food after 1500 Metabolic None reported Musc/skel None reported Neuropsych None reported Anesthetic Plan ASA status: 2 Anesthesia: MAC Medications/Allergies Home Medications Medication Instructions Recorded Confirmed Last Taken Type fluticasone propionate 50 1 spray intranasal BID allergies & 08/14/22 01/22/24 Unknown Rx mcg/actuation nasal sinus congestion 90 days #48 grams spray,suspension budesonide-formoterol HFA 160 2 puff inhalation BID 90 days 09/09/22 01/22/24 Unknown Rx mcg-4.5 mcg/actuation aerosol #30.6 grams inhaler (Symbicort) meloxicam 15 mg tablet 15 mg PO DAILY pain #30 tabs 01/05/24 01/22/24 Unknown Rx nitrofurantoin 100 mg PO BID 7 days #14 caps 01/19/24 01/22/24 01/25/24 Rx monohydrate/macrocrystals 100 mg capsule (Macrobid) fenofibrate 160 mg tablet 160 mg PO DAILY #30 tabs 01/21/24 01/22/2401/25/24 Rx albuterol sulfate 90 mcg/actuation 1 puff inhalation PRN 01/27/24 01/27/24 Unknown History aerosol inhaler atorvastatin 20 mg tablet 20 mg PO DAILY 01/27/24 01/27/24 01/26/24 History hydrochlorothiazide 25 mg tablet 25 mg PO DAILY 01/27/24 01/27/24 01/27/24 History loratadine 10 mg tablet 10 mg PO DAILY 01/27/24 01/27/24 01/26/24 History Allergies Allergy/AdvReac Type Severity Reaction Status Date / Time Penicillins Allergy Mild ALGY-Rash Verified 01/19/24 08:27 Sulfa (Sulfonamide Allergy Mild ALGY-Rash Verified 01/19/24 08:27 Antibiotics) adhesive tape Allergy ALGY-Redness Verified 01/19/24 08:27 of Skin Current Medications Generic Name Dose Route Start Last Admin Trade Name Freq PRN Reason Stop Dose Admin Sodium Chloride 1,000 mls @ 30 mls/hr 01/27/24 09:15 01/27/24 09:34 Sodium Chloride 0.9% IV 30 mls/hr .Q24H JACQUES Administration PFSH Anesthesia Medical History (Updated 01/19/24 @ 09:18 by Erich Doe MD) Hypomagnesemia Hypokalemia Current non-smoker quit ~ 07/28/2022 History of nonmelanoma skin cancer Left maxillary sinusitis Benign essential HTN Hyperlipidemia Nicotine dependence, cigarettes, with unspecified nicotine-induced disorders Quit 07/28/2022 Surgical History History of left hip replacement (~2013) H/O: hysterectomy History of tonsillectomy and adenoidectomy Family History Mother Hypertension Father Hypertension Social History (Updated 01/19/24 @ 08:35 by Riana Mckinney MA) Smoking and tobacco/nicotine status: former use of tobacco/nicotine Alcohol intake: current Alcohol intake frequency: holidays/special occasions only Substance/Drug Use: never Adopted: No service: No Current occupational exposures/hazards: No Data Anesthesia Cardiac Studies: No Data to Display
--- NOTE | 2024-01-27 10:16 | W.PM.OPSFHP ---
Same Day Surgery H&P Indication for Procedure/HPI DATE OF PROCEDURE: January 27, 2024 CHIEF COMPLAINT/INDICATIONFOR SURGICAL PROCEDURE: need for screening colonoscopy PREOP DIAGNOSIS: need for screening colonoscopy PLANNED PROCEDURE: Operation Date: 01/27/24 10:15 Proposed Procedures p Colonoscopy 79545, G0105, Z12.11, K57.92(Not Applicable) - Rodo Dan MD Medications/Allergies* Home Medications Medication Instructions Recorded Confirmed Type albuterol sulfate 90 mcg/actuation 1 puff inhalation PRN 01/27/24 01/27/24 History aerosol inhaler atorvastatin 20 mg tablet 20 mg PO DAILY 01/27/24 01/27/24 History hydrochlorothiazide 25 mg tablet 25 mg PO DAILY 01/27/24 01/27/24 History loratadine 10 mg tablet 10 mg PO DAILY 01/27/24 01/27/24 History Allergies/Adverse Reactions Allergy/AdvReac Type Severity Reaction Status Date / Time Penicillins Allergy Mild ALGY-Rash Verified 01/19/24 08:27 Sulfa (Sulfonamide Allergy Mild ALGY-Rash Verified 01/19/24 08:27 Antibiotics) adhesive tape Allergy ALGY-Redness Verified 01/19/24 08:27 of Skin Current Medications: Generic Name Dose Route Start Last Admin Trade Name Freq PRN Reason Stop Dose Admin Sodium Chloride 1,000 mls @ 30 mls/hr 01/27/24 09:15 01/27/24 09:34 Sodium Chloride 0.9% IV 30 mls/hr .Q24H JACQUES Administration Pertinent History/Comorbid Conditions* Medical History (Updated 01/19/24 @ 09:18 by Erich Doe MD) Hypomagnesemia Hypokalemia Current non-smoker quit ~ 07/28/2022 History of nonmelanoma skin cancer Left maxillary sinusitis Benign essential HTN Hyperlipidemia Nicotine dependence, cigarettes, with unspecified nicotine-induced disorders Quit 07/28/2022 Surgical History (Updated 08/23/19 @ 08:53 by Sindy Garcia DO) History of left hip replacement (~2013) H/O: hysterectomy History of tonsillectomy and adenoidectomy Family History (Updated 08/23/19 @ 08:47 by Suma Nuñez LPN) Hypertension Mother Father Social History Smoking and tobacco/nicotine status: former use of tobacco/nicotine Alcohol intake: current Alcohol intake frequency: holidays/special occasions only Substance/Drug Use: never Adopted: No service: No Current occupational exposures/hazards: No Pertinent Exam Findings alert, oriented x 3, clear to auscultation bilaterally and regular rate & rhythm Recommendations Surgery/Procedure today Coding Level of Care Code Acute Code for Chg Johnny
[2024-01-27 10:55] VITALS: BP 153/80; PULSE 60; RESP 16; TEMP 36.4; O2SAT 96
[2024-01-27 11:06] VITALS: BP 132/73; PULSE 62; RESP 16; O2SAT 97
--- NOTE | 2024-01-27 14:00 | ANE.PACU2 ---
Inpatient post-anesthesia follow up: Airway intact: Yes Vital signs: Temperature 97.5 F Pulse Rate 62 Respiratory Rate 16 Blood Pressure 132/73 Pulse Oximetry 97 Oxygen Delivery Me thod Room Air Oxygen Flow Rate Fraction of Inspir ed Oxygen Hydration adequate: Yes Nausea and vomiting: No Pain level: 2 Mental status: Baseline
== END 2024-01-27 11:25 | disposition home or self-care (01) ==
PROVIDERS: PCP Family Medicine; Visit Provider Surgery
PROC: 0DJD8ZZ Inspection of Lower Intestinal Tract, Via Natural or Artificial Opening Endoscopic (ICD-10-PCS; CPT 45378; principal; 2024-01-27 10:15)
DX: Z12.11 Encounter for screening for malignant neoplasm of colon (principal); K57.30 Diverticulosis of large intestine without perforation or abscess without bleeding; D12.4 Benign neoplasm of descending colon; D12.5 Benign neoplasm of sigmoid colon; D12.8 Benign neoplasm of rectum; I10 Essential (primary) hypertension; E78.5 Hyperlipidemia, unspecified; Z87.891 Personal history of nicotine dependence
CPT/HCPCS: 45380; 88305; J2704; J7030

== ENCOUNTER → 2024-02-18 08:55 | Outpatient (BNVA) | payer MEDICARE, SELFPAY | PROVIDERS: PCP Family Medicine; Visit Provider Surgery | DX: Z09 Encounter for follow-up examination after completed treatment for conditions other than malignant neoplasm (principal) | CPT/HCPCS: 99213 ==

== ENCOUNTER → 2024-02-25 14:08 | Outpatient (BNVA) | payer MEDICARE, SELFPAY | PROVIDERS: PCP Family Medicine; Visit Provider Nurse Practitioner Family | DX: L82.0 Inflamed seborrheic keratosis (principal); L57.0 Actinic keratosis; L57.8 Other skin changes due to chronic exposure to nonionizing radiation; D22.4 Melanocytic nevi of scalp and neck; L81.4 Other melanin hyperpigmentation; L82.1 Other seborrheic keratosis; Z85.828 Personal history of other malignant neoplasm of skin; Z80.8 Family history of malignant neoplasm of other organs or systems | CPT/HCPCS: 17000; 17110; 99213 ==

== ENCOUNTER → 2024-04-19 08:42 | Outpatient (BNVA) | payer MEDICARE, SELFPAY | PROVIDERS: PCP Family Medicine; Visit Provider Family Medicine | DX: E78.1 Pure hyperglyceridemia (principal) | CPT/HCPCS: 80061 ==

== ENCOUNTER 2024-06-16 07:49 | Outpatient (CLI) | payer MEDICARE, SELFPAY ==
--- NOTE | 2024-06-16 | MM_ITS ---
NOTE: Original Signature date and time was: 06/16/24 @1417 VIEWS: MLO and CC views both breasts. 3D digital tomosynthesis is also included in this exam. Comparison made with prior exam of 06/22/2018, 12/14/2019, 01/22/2021, 03/20/2022, 03/21/2023.. Findings: There are scattered areas of fibroglandular density. No suspicious mass, tumor calcification or architectural distortion. Stable appearing nodular densities in both breasts. Impression: BI-RADS: 2 - Benign FOLLOW-UP: 1 Year Follow-up This mammogram was also analyzed by the [employer]. GAIL
== END 2024-06-16 07:50 | disposition home or self-care (01) ==
LOC: RAD 07:51
PROVIDERS: PCP Family Medicine; Visit Provider Family Medicine
DX: Z12.31 Encounter for screening mammogram for malignant neoplasm of breast (principal); R92.323 Mammographic fibroglandular density, bilateral breasts
CPT/HCPCS: 77063; 77067

== ENCOUNTER → 2024-08-26 11:18 | Outpatient (BNVA) | payer MEDICARE, SELFPAY | PROVIDERS: PCP Family Medicine; Visit Provider Nurse Practitioner Family | DX: L21.8 Other seborrheic dermatitis (principal); L81.4 Other melanin hyperpigmentation; L57.8 Other skin changes due to chronic exposure to nonionizing radiation; D22.5 Melanocytic nevi of trunk; L82.1 Other seborrheic keratosis; L30.8 Other specified dermatitis; Z08 Encounter for follow-up examination after completed treatment for malignant neoplasm; Z85.828 Personal history of other malignant neoplasm of skin; L82.0 Inflamed seborrheic keratosis; L53.8 Other specified erythematous conditions; R20.8 Other disturbances of skin sensation; R58 Hemorrhage, not elsewhere classified; L57.0 Actinic keratosis | CPT/HCPCS: 17000; 17110; 99214 ==

== ENCOUNTER → 2024-10-06 08:57 | Outpatient (BNVA) | payer MEDICARE, SELFPAY | PROVIDERS: PCP Family Medicine; Visit Provider Family Medicine | DX: I10 Essential (primary) hypertension (principal) | CPT/HCPCS: 80053; 80061; 85025 ==

== ENCOUNTER → 2024-11-21 11:54 | Outpatient (BNVA) | payer MEDICARE, SELFPAY | PROVIDERS: PCP Family Medicine; Visit Provider Registered Nurse Neonatal Intensive Care | DX: J02.9 Acute pharyngitis, unspecified (principal) | CPT/HCPCS: 87880 ==

== ENCOUNTER 2025-02-07 12:41 | Outpatient (CLI) | payer MEDICARE, SELFPAY ==
--- NOTE | 2025-02-07 13:00 | XR_ITS ---
WS: [id number] SCREENING DEXA SCAN [facility] CLINICAL INFORMATION: osteoporosis COMPARISON: 2022 FINDINGS: The L1-L4 bone mineral density measures 0.974 g/cm2. This corresponds to a T score score of -1.7 and Z score of -0.4. Left forearm bone mineral density measures 0.72. This corresponds to a T score of -1.8 and Z score of 0.0. Right femoral neck bone mineral density measures 0.72. This corresponds to a T score -2.3 of and Z score of -1.0. XR/XR DEXA axial skeleton* 83059 IMPRESSION: Osteopenia lumbar spine. Osteopenia RIGHT femoral neck. Osteopenia LEFT forearm . Patient's FRAX calculated 10 year probability for major osteoporotic fracture i s 16.8% and osteoporotic hip fracture is 5.1%. Bone density lumbar spine increased 10.9% Bone density RIGHT femoral neck increased 6.4% Bone density LEFT forearm increased 2.9%
== END 2025-02-07 12:42 | disposition home or self-care (01) ==
LOC: RAD 12:42
PROVIDERS: PCP Family Medicine; Visit Provider Family Medicine
DX: Z13.820 Encounter for screening for osteoporosis (principal); M81.0 Age-related osteoporosis without current pathological fracture; M85.89 Other specified disorders of bone density and structure, multiple sites
CPT/HCPCS: 77080

== ENCOUNTER → 2025-02-11 10:29 | Outpatient (BNVA) | payer MEDICARE, SELFPAY | PROVIDERS: PCP Family Medicine; Visit Provider Registered Nurse Neonatal Intensive Care | DX: R10.9 Unspecified abdominal pain (principal) | CPT/HCPCS: 81000; 87077; 87086; 87184 ==

== ENCOUNTER → 2025-02-16 13:47 | Outpatient (BNVA) | payer MEDICARE, SELFPAY | PROVIDERS: PCP Family Medicine; Visit Provider Nurse Practitioner Family | DX: L21.8 Other seborrheic dermatitis (principal); L30.8 Other specified dermatitis; L81.4 Other melanin hyperpigmentation; L57.8 Other skin changes due to chronic exposure to nonionizing radiation; L82.1 Other seborrheic keratosis; D22.5 Melanocytic nevi of trunk; Z08 Encounter for follow-up examination after completed treatment for malignant neoplasm; Z85.828 Personal history of other malignant neoplasm of skin; L82.0 Inflamed seborrheic keratosis; L53.8 Other specified erythematous conditions; Z78.9 Other specified health status | CPT/HCPCS: 17000; 17110; 99214 ==

== ENCOUNTER → 2025-02-19 18:03 | Outpatient (BNVA) | payer MEDICARE, SELFPAY | PROVIDERS: PCP Family Medicine; Visit Provider Emergency Medicine | DX: R10.9 Unspecified abdominal pain (principal) | CPT/HCPCS: 81000; 87086 ==

== ENCOUNTER → 2025-04-04 09:30 | Outpatient (BNVA) | payer MEDICARE, SELFPAY | PROVIDERS: PCP Family Medicine; Visit Provider Family Medicine | DX: I10 Essential (primary) hypertension (principal) | CPT/HCPCS: 80053 ==

== ENCOUNTER → 2025-05-02 10:23 | Outpatient (BNVA) | payer MEDICARE, SELFPAY | PROVIDERS: PCP Family Medicine; Visit Provider Podiatrist Foot & Ankle Surgery | DX: M21.611 Bunion of right foot (principal); M79.671 Pain in right foot | CPT/HCPCS: 73630; 99203 ==

== ENCOUNTER → 2025-06-18 11:10 | Outpatient (BNVA) | payer MEDICARE, SELFPAY | PROVIDERS: PCP Family Medicine | DX: R30.0 Dysuria (principal) | CPT/HCPCS: 81000; 87077; 87086; 87184 ==

== ENCOUNTER → 2025-06-27 13:55 | Outpatient (BNVA) | payer MEDICARE, SELFPAY | PROVIDERS: PCP Family Medicine; Visit Provider Nurse Practitioner Family | DX: L21.8 Other seborrheic dermatitis (principal); L57.8 Other skin changes due to chronic exposure to nonionizing radiation; L81.4 Other melanin hyperpigmentation; D18.01 Hemangioma of skin and subcutaneous tissue; Z08 Encounter for follow-up examination after completed treatment for malignant neoplasm; Z85.828 Personal history of other malignant neoplasm of skin; L57.0 Actinic keratosis | CPT/HCPCS: 17000; 99214 ==